=== PATIENT | male | born 1945 | race Caucasian/White ===

== ENCOUNTER 2017-03-28 12:32 | Emergency (ER) | payer OTHER ==
[~2017-03-28] VITALS: Ht 177.8 cm; Wt 93.0 kg
[2017-03-28] MEDS ORDERED: PLAVIX75 MG PO (12:50)
[2017-03-28] MEDS ORDERED: TOPROL XL50 MG PO (12:51)
[2017-03-28] MEDS ORDERED: ZOCOR10 MG PO (12:53)
[2017-03-28] MEDS ORDERED: AUGMENTIN 875-1 EACH PO (14:19)
[2017-03-28] MEDS ORDERED: FLONASE ALLERG9.9 ML NAS (14:19)
--- NOTE | 2017-03-29 04:03 | EKG ---
[facility] [address] [facility] [place] [address] Signed Sinus bradycardia Otherwise normal ECG No previous ECGs available Confirmed by RITU BLOOM MD ([id number]) on 03/29/2017 4:03:13 AM Electronically Signed By: RITU BLOOM MD 03/29/17 0403 PATIENT NAME: ERIK AGUSTIN Electrocardiogram DATE OF : 49 PHYSICIAN: RITU BLOOM MD REPORT #: [id number] REPORT IS CONFIDENTIAL AND NOT TO BE RELEASED WITHOUT AUTHORIZATION
== END 2017-03-28 14:48 | disposition home or self-care (01) ==
LOC: ED 12:32
DX: H53.2 Diplopia (principal); J32.9 Chronic sinusitis, unspecified; I25.2 Old myocardial infarction; Z86.73 Personal history of transient ischemic attack (TIA), and cerebral infarction without residual deficits; Z79.02 Long term (current) use of antithrombotics/antiplatelets; Z95.5 Presence of coronary angioplasty implant and graft; Z79.899 Other long term (current) drug therapy
CPT/HCPCS: 70450; 93005; 93010; 93880; 99284

== ENCOUNTER 2020-11-28 17:51 | Emergency (ER) | payer OTHER ==
[~2020-11-28] VITALS: Ht 177.8 cm; Wt 91.4 kg
[~2020-11-28 17:51] MED LIST: AUGMENTIN 875-1 EACH PO; FLONASE ALLERG9.9 ML NAS; PLAVIX75 MG PO; TOPROL XL50 MG PO; ZOCOR10 MG PO
[2020-11-28] MEDS ORDERED: PENICILLIN V P500 MG PO (18:12)
[2020-11-28] MEDS ORDERED: PROTONIX40 MG PO (18:14)
[2020-11-28] MEDS ORDERED: VENTOLIN HFA18 GM (18:14)
--- NOTE | 2020-11-29 14:34 | EKG ---
[facility] [address] [facility] [place] [address] Signed Normal sinus rhythm Left axis deviation Septal infarct , age undetermined Abnormal ECG When compared with ECG of 28-MAR-2017 13:08, Vent. rate has increased BY 38 BPM Septal infarct is now present QT has lengthened Confirmed by CAL WATSON DO ([id number]) on 11/29/2020 2:34:03 PM Electronically Signed By: CAL WATSON DO 11/29/20 1434 PATIENT NAME: NIKOLEERIK JO ANN Electrocardiogram DATE OF : 49 PHYSICIAN: CAL WATSON DO REPORT #: [id number] REPORT IS CONFIDENTIAL AND NOT TO BE RELEASED WITHOUT AUTHORIZATION
== END 2020-11-28 20:23 | disposition short-term general hospital (02) ==
LOC: ED 17:51
DX: I63.9 Cerebral infarction, unspecified (principal); Z20.822 Contact with and (suspected) exposure to COVID-19; I25.2 Old myocardial infarction; Z79.899 Other long term (current) drug therapy
CPT/HCPCS: 70450; 70496; 70498; 71045; 80053; 84484; 85025; 85610; 85730; 93005; 93010; 99285-25; C9803; J1953; J2060; J2997; Q9967; U0003

== ENCOUNTER 2020-12-23 21:40 | Inpatient (IN) | payer MEDICARE ==
[~2020-12-23] VITALS: Ht 177.8 cm; Wt 81.5 kg
[~2020-12-23 21:40] MED LIST changes: +PENICILLIN V P500 MG PO; +PROTONIX40 MG PO; +VENTOLIN HFA18 GM
--- OUTSIDE RECORDS SUMMARY | 2020-12-23 21:48 | XMS ---
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 No recent Security Events currently on file CRITERIA MET - [facility] - 2 Visits in 30 Days CARE PROVIDERS KIKE BURRELL Drum Worker Current GARY Loera PHONE: [phone] ZINA ARREGUIN Internal Medicine Current PHONE: [phone] ALLEN HERNANDEZ Nurse Practitioner Current PHONE: [phone] ESDRAS HERRERA Nurse Practitioner: Family Current PHONE: Unknown Nurse Ravin SHEPPARD PORTILLO PHONE: [phone] ABBI [facility] Nursing [facility] Current PHONE: [phone] IDALIA [facility] Current PHONE: [phone] Erica has no Care Guidelines for this patient. Jennifer VISIT COUNT (12 MO.) 2 TIERNEY Hassan TOTAL 2 NOTE: Visits indicate total known visits. ED/UCC VISIT TRACKING (12 MO.) 12/23/2020 21:[address] [facility] [place] TYPE: Emergency COMPLAINT: - ABNORMAL LAB RESULTS 11/28/2020 17:[facility] TYPE: Emergency COMPLAINT: - STROKE SYMPTOMS DIAGNOSES: - Other terminal computer operator (current) drug therapy - Old myocardial infarction - Cerebral infarction, unspecified INPATIENT VISIT TRACKING (12 MO.) 11/28/2020 21:37 [facility] DIAGNOSES: - Encephalopathy, unspecified - Atherosclerotic heart disease of [place] coronary artery without angina pectoris - Cerebral infarction due to unspecified occlusion or stenosis of left anterior cerebral artery - Benign prostatic hyperplasia without lower urinary tract symptoms - Coronary atherosclerosis due to calcified coronary lesion - Cerebral infarction, unspecified - Cerebral infarction due to unspecified occlusion or stenosis of right anterior cerebral artery - Essential (primary) hypertension [email or web address]
[2020-12-23] MEDS ORDERED: NORVASC10 MG PO (21:56)
[2020-12-23] MEDS ORDERED: ASPIRIN81 MG PO (21:57)
[2020-12-23] MEDS ORDERED: LIPITOR40 MG PO (21:57)
[2020-12-23] MEDS ORDERED: SODIUM CHLORIDE1 GM PO (21:58)
[2020-12-23] MEDS ORDERED: FLOMAX0.4 MG PO (21:59)
[2020-12-23] MEDS ORDERED: METOPROLOL TART25 MG PO (22:02)
[2020-12-25] MEDS ORDERED: TYLENOL325 MG PO (11:09)
[2020-12-25] MEDS ORDERED: DULCOLAX10 MG PR (11:13)
[2020-12-25] MEDS ORDERED: MIRALAX17 GM PO (11:14)
[2020-12-25] MEDS ORDERED: NORVASC10 MG PO (15:51)
== END 2020-12-25 15:20 | DRG 641 ==
LOC: ED 21:40 → MS 12-24 00:26
PROVIDERS: ADMIT Internal Medicine; ATTEND Internal Medicine
DX: E87.0 Hyperosmolality and hypernatremia (principal); I25.10 Atherosclerotic heart disease of native coronary artery without angina pectoris; Z20.822 Contact with and (suspected) exposure to COVID-19; I10 Essential (primary) hypertension; K21.9 Gastro-esophageal reflux disease without esophagitis; N40.0 Benign prostatic hyperplasia without lower urinary tract symptoms; E78.5 Hyperlipidemia, unspecified; I25.2 Old myocardial infarction; Z86.73 Personal history of transient ischemic attack (TIA), and cerebral infarction without residual deficits; Z79.82 Long term (current) use of aspirin; Z79.899 Other long term (current) drug therapy
CPT/HCPCS: 80048; 80053; 81001; 85025; 99284; C9803; J3480; J7060; J7070; U0003

== ENCOUNTER 2021-02-23 12:19 | Emergency (ER) | payer OTHER ==
[~2021-02-23] VITALS: Ht 177.8 cm; Wt 81.4 kg
[~2021-02-23 12:19] MED LIST changes: +ASPIRIN81 MG PO; +DULCOLAX10 MG PR; +FLOMAX0.4 MG PO; +LIPITOR40 MG PO; +METOPROLOL TART25 MG PO; +MIRALAX17 GM PO; +NORVASC10 MG PO; +SODIUM CHLORIDE1 GM PO; +TYLENOL325 MG PO
--- NOTE | 2021-02-25 21:26 | EKG ---
[facility] [address] [facility] [place], [place] [address] Signed Normal sinus rhythm Normal ECG When compared with ECG of 28-NOV-2020 18:14, QT has shortened Confirmed by CAL WATSON DO ([id number]) on 02/25/2021 9:25:46 PM Electronically Signed By: CAL WATSON DO 02/25/21 2126 PATIENT NAME: ERIK AGUSTIN JO ANN Electrocardiogram DATE OF : 49 PHYSICIAN: CAL WATSON DO REPORT #: [id number] REPORT IS CONFIDENTIAL AND NOT TO BE RELEASED WITHOUT AUTHORIZATION
== END 2021-02-23 17:25 | disposition home or self-care (01) ==
LOC: ED 12:19
DX: R55 Syncope and collapse (principal); R53.1 Weakness; I25.2 Old myocardial infarction; Z86.73 Personal history of transient ischemic attack (TIA), and cerebral infarction without residual deficits; Z79.82 Long term (current) use of aspirin; Z79.899 Other long term (current) drug therapy
CPT/HCPCS: 70450; 80053; 83735; 85025; 93005; 93010; 99285-25

== ENCOUNTER 2021-06-16 11:38 | Emergency (ER) | payer OTHER ==
[~2021-06-16] VITALS: Ht 177.8 cm; Wt 98.7 kg
[~2021-06-16 11:38] MED LIST changes: +CEPHALEXIN500 MG PO; +LEVETIRACETAM500 MG PO; +METOPROLOL SUCC25 MG PO; +PEG3350510 GM PO
--- OUTSIDE RECORDS SUMMARY | 2021-06-16 11:46 | XMS ---
PreMana Notification: ERIK AGUSTIN Security Cashier Greeter Events No recent Security Events currently on file CRITERIA MET - [facility] - 2 Visits in 30 Days CARE PROVIDERS KIKE BURRELL Fulfillment Representative Current GARY Loera PHONE: [phone] ZINA ARREGUIN Internal Medicine Current PHONE: Unknown ALLEN HERNANDEZ Nurse Practitioner Current PHONE: [phone] ESDRAS HERRERA Nurse Practitioner: Family Current PHONE: Unknown Nurse Ravin SHEPPARD PORTILLO PHONE: [phone] IDALIA [facility] Current PHONE: [phone] Erica has no Care Guidelines for this patient. Jennifer VISIT COUNT (12 MO.) 5 TIERNEY Hassan TOTAL 5 NOTE: Visits indicate total known visits. 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 - Old myocardial infarction - Personal history of transient ischemic attack (TIA), and cerebral infarction without residual deficits - Weakness - longterm (current) use of aspirin 12/23/2020 21:40 [facility] TYPE: Emergency COMPLAINT: - ABNORMAL LAB RESULTS 11/28/2020 17:51 [facility] TYPE: Emergency COMPLAINT: - STROKE SYMPTOMS DIAGNOSES: - Other jail (current) drug therapy - Old myocardial infarction - Cerebral infarction, unspecified INPATIENT VISIT TRACKING (12 MO.) 05/23/2021 18:34 [facility] TYPE: Observation COMPLAINT: - ALTERED MENTAL STATUS, CVA VS SEIZURE DIAGNOSES: - Essential (primary) hypertension - Hyperlipidemia, unspecified - Aphasia following cerebral infarction - Memory deficit following cerebral infarction - Unspecified convulsions - Hypo-osmolality and hyponatremia - Benign prostatic hyperplasia without lower urinary tract symptoms - Other sequelae of cerebral infarction - Gastro-esophageal reflux disease without esophagitis - Acute kidney failure, unspecified - Acute cystitis without hematuria - Old myocardial infarction - Atherosclerotic heart disease of [place] coronary artery without angina pectoris - Coronary angioplasty status 12/24/2020 00:26 [facility] TYPE: Medical Surgical COMPLAINT: - HYPERNATREMIA DIAGNOSES: - Hyperosmolality and hypernatremia - longterm (current) use of aspirin - Benign prostatic hyperplasia without lower urinary tract symptoms - Personal history of transient ischemic attack (TIA), and cerebral infarction without residual deficits - Atherosclerotic heart disease of [place] coronary artery without angina pectoris - Old myocardial infarction - Old myocardial infarction - Other long term care social worker (current) drug therapy - Other long term care social worker (current) drug therapy - longterm (current) use of aspirin - Atherosclerotic heart disease of [place] coronary artery without angina pectoris - Benign prostatic hyperplasia without lower urinary tract symptoms - Hyperlipidemia, unspecified - Personal history of transient ischemic attack (TIA), and cerebral infarction without residual deficits - Essential (primary) hypertension - Gastro-esophageal reflux disease without esophagitis - Gastro-esophageal reflux disease without esophagitis - Essential (primary) hypertension - Hyperlipidemia, unspecified 11/28/2020 21:37 [facility] FLORI Correia TYPE: Neuro Surgery DIAGNOSES: - Encephalopathy, unspecified - Atherosclerotic heart disease of [place] coronary artery without angina pectoris - Cerebral infarction due to unspecified occlusion or stenosis of left anterior cerebral artery - Benign prostatic hyperplasia without lower urinary tract symptoms - Coronary atherosclerosis due to calcified coronary lesion - Cerebral infarction, unspecified - Cerebral infarction due to unspecified occlusion or stenosis of right anterior cerebral artery - Essential (primary) hypertension [email or web address]
[2021-06-16] MEDS ORDERED: VENTOLIN HFA18 GM INH (12:02)
== END 2021-06-16 14:11 | disposition home or self-care (01) ==
LOC: ED 11:38
DX: J40 Bronchitis, not specified as acute or chronic (principal); Z20.822 Contact with and (suspected) exposure to COVID-19; G47.30 Sleep apnea, unspecified; I25.2 Old myocardial infarction; Z86.73 Personal history of transient ischemic attack (TIA), and cerebral infarction without residual deficits; Z79.899 Other long term (current) drug therapy; Z79.82 Long term (current) use of aspirin; Z79.51 Long term (current) use of inhaled steroids
CPT/HCPCS: 71045; 80048; 85025; 99283-25; C9803; U0003

== ENCOUNTER 2021-06-26 20:05 | Emergency (ER) | payer OTHER ==
[~2021-06-26] VITALS: Ht 177.8 cm; Wt 100.0 kg
[~2021-06-26 20:05] MED LIST changes: +VENTOLIN HFA18 GM INH
--- OUTSIDE RECORDS SUMMARY | 2021-06-26 20:14 | XMS ---
PreManage Notification: ERIK AGUSTIN Security Order Booker Events No recent Security Events currently on file CRITERIA MET - [facility] - 2 Visits in 30 Days CARE PROVIDERS KELLY UP Internal Medicine 06/20/2021-Current PHONE: Unknown KIKE BURRELL Inspector Filter Tipzuhair Loera PHONE: [phone] ZINA ARREGUIN Internal Medicine Current PHONE: Unknown ALLEN HERNANDEZ Nurse Practitioner Current PHONE: [phone] ESDRAS HERRERA Nurse Practitioner: Family Current PHONE: Unknown VALARIE Nurse Practitioner Current TONEY NATH PHONE: [phone] TERENCE FRIEDMAN [facility] Current PHONE: [phone] Erica has no Care Guidelines for this patient. EKevin VISIT COUNT (12 MO.) Romeo Hassan TOTAL 6 NOTE: Visits indicate total known visits. 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 - Other halfway (current) drug therapy - Sleep apnea, unspecified - Bronchitis, not specified as acute or chronic - COUGH, UNSPECIFIED - [facility] (current) use of aspirin - Personal history of transient ischemic attack (TIA), and cerebral infarction without residual deficits 05/23/2021 18:33 [facility] [place] [facility] [place] TYPE: Emergency COMPLAINT: - UNRESPONSIVE 02/23/2021 12:20 [facility] TYPE: Emergency COMPLAINT: - WEAKNESS DIAGNOSES: - Syncope and collapse - Other termite exterminator helper (current) drug therapy - Old myocardial infarction - Personal history of transient ischemic attack (TIA), and cerebral infarction without residual deficits - Weakness - [facility]CI (current) use of aspirin 12/23/2020 21:40 [facility] TYPE: Emergency COMPLAINT: - ABNORMAL LAB RESULTS 11/28/2020 17:51 [facility] TYPE: Emergency COMPLAINT: - STROKE SYMPTOMS DIAGNOSES: - Other halfway (current) drug therapy - Old myocardial infarction [...] myocardial infarction - Atherosclerotic heart disease of [place] coronary artery without angina pectoris - Coronary angioplasty status 12/24/2020 00:26 [facility] TYPE: Medical Surgical COMPLAINT: - HYPERNATREMIA DIAGNOSES: - Hyperosmolality and hypernatremia - FCI (current) use of aspirin - Benign prostatic hyperplasia without lower urinary tract symptoms - Personal history of transient ischemic attack (TIA), and cerebral infarction without residual deficits - Atherosclerotic heart disease of [place] coronary artery without angina pectoris - Old myocardial infarction - Old myocardial infarction - Other termite exterminator helper (current) drug therapy - Other halfway (current) drug therapy - FCI (current) use of aspirin - Atherosclerotic heart disease of [place] coronary artery without angina pectoris - Benign prostatic hyperplasia without lower urinary tract symptoms - Hyperlipidemia, unspecified - Personal history of transient ischemic attack (TIA), and cerebral infarction without residual deficits - Essential (primary) hypertension - Gastro-esophageal reflux disease without esophagitis - Gastro-esophageal reflux disease without esophagitis - Essential (primary) hypertension - Hyperlipidemia, unspecified 11/28/2020 21:37 [facility] FLORI Correia TYPE: Neuro Surgery DIAGNOSES: - Encephalopathy, unspecified - Atherosclerotic heart disease of [place] coronary artery without angina pectoris - Cerebral infarction due to unspecified occlusion or stenosis of left anterior cerebral artery - Benign prostatic hyperplasia without lower urinary tract symptoms - Coronary atherosclerosis due to calcified coronary lesion - Cerebral infarction, unspecified - Cerebral infarction due to unspecified occlusion or stenosis of right anterior cerebral artery - Essential (primary) hypertension [id number]
--- NOTE | 2021-06-27 13:56 | EKG ---
[facility] [address] [facility] [place] [address] Signed Normal sinus rhythm Left axis deviation Septal infarct (cited on or before 23-MAY-2021) Abnormal ECG When compared with ECG of 23-MAY-2021 19:29, No significant change was found Confirmed by AMBAR DOW MD ([id number]) on 06/27/2021 1:56:45 PM Electronically Signed By: AMBAR DOW MD 06/27/21 1356 PATIENT NAME: NIKOLEERIK JO ANN Electrocardiogram DATE OF : 49 PHYSICIAN: AMBAR DOW MD REPORT #: [id number] REPORT IS CONFIDENTIAL AND NOT TO BE RELEASED WITHOUT AUTHORIZATION
== END 2021-06-26 22:25 | disposition home or self-care (01) ==
LOC: ED 20:05
DX: J44.1 Chronic obstructive pulmonary disease with (acute) exacerbation (principal); I25.2 Old myocardial infarction; Z86.73 Personal history of transient ischemic attack (TIA), and cerebral infarction without residual deficits; Z79.82 Long term (current) use of aspirin; Z79.899 Other long term (current) drug therapy; Z79.51 Long term (current) use of inhaled steroids; Z20.822 Contact with and (suspected) exposure to COVID-19
CPT/HCPCS: 36415; 71045; 80048; 83880; 85025; 93005; 93010; 94664; 96374; 99285-25; C9803; J2930; U0003